=== PATIENT | female | born 1955 | race Caucasian/White ===

== ENCOUNTER 2017-09-28 09:37 | Emergency (ER) | payer BC, OTHER ==
[~2017-09-28] VITALS: Ht 165.1 cm; Wt 114.5 kg
[2017-09-28] MEDS ORDERED: ESCITALOPRAM OX10 MG PO (11:02)
[2017-09-28] MEDS ORDERED: FLONASE16 G1 BOTH NARES (11:03)
[2017-09-28] MEDS ORDERED: SYNTHROID88 MCG PO (11:03)
[2017-09-28] MEDS ORDERED: LOPRESSOR25 MG PO (11:03)
[2017-09-28] MEDS ORDERED: AUGMENTIN875 MG PO (11:33)
[2017-09-28 11:50] VITALS: BP 148/90
== END 2017-09-28 11:50 | disposition home or self-care (01) ==
LOC: EME 09:37
DX: J02.9 Acute pharyngitis, unspecified (principal); R05 Cough
CPT/HCPCS: 99281; 99283